=== PATIENT | male | born 1960 | race Caucasian/White ===

== ENCOUNTER → 2024-08-30 11:02 | Outpatient (CLI) | payer OTHER, SELFPAY ==
[2024-08-30 12:11] LABS: Add Manual Diff / Slide Review NO; Basophils Absolute Auto 100 /uL (0-100); Basophils Percent Auto 0.8 % (0-2); Eosinophils Absolute Auto 100 /uL (0-450); Eosinophils Percent Auto 1.7 % (2-4); Hematocrit 47.5 % (41-53); Hemoglobin 15.8 g/dL (13.5-17.5); Lymphocytes Absolute Auto 2200 /uL (1100-4500); Lymphocytes Percent Auto 27.7 % (25-40); Mean Corpuscular HGB Conc 33.2 % (30-36); Mean Corpuscular Hemoglobin 29.6 PG (26-34); Mean Corpuscular Volume 89.2 fL (80-100); Monocytes Absolute Auto 900 /uL (0-900); Monocytes Percent Auto 11.6 % (3-14); Neutrophils Absolute Auto 4600 /uL (1500-7000); Neutrophils Percent Auto 58.2 % (50-75); Platelet Count 229 X10^3/uL (150-400); Red Blood Cell Count 5.32 X10^6/uL (4.5-5.9); Red Cell Distribution Width 14.2 % (11.6-14.8); White Blood Cell Count 7.8 X10^3/uL (4.5-11.0)
--- NOTE | 2024-08-30 12:32 | EKG_ITS ---
Merged With [facility] [address] [address] Test Date: 2024-08-30 Pat Name: Refugio Villa Department: Merged With [facility] Room: Gender: Male Kitchen Food Server: KAITLIN : 1960 Requested By: Order Number: [id number] Reading MD: Mike Jackson MD Measurements Intervals [place] Rate: 64 P: 36 MS: 202 QRS: -32 QRSD: 100 T: -1 QT: 394 QTc: 406 Interpretive Statements Normal sinus rhythm Left axis deviation Minimal voltage criteria for LVH, may be normal variant ( R in aVL ) Electronically Signed On 08-31-2024 7:34:19 PDT by Mike Jackson MD
[2024-08-30 12:35] LABS: Albumin 4.3 g/dL (3.5-5.0); BUN Creatinine Ratio 15.7 (6-22); Blood Urea Nitrogen 13 mg/dL (9-20); Calcium 9.9 mg/dL (8.4-10.2); Carbon Dioxide 22 mmol/L (22-32); Chloride 105 mmol/L (98-107); Estimated Glomerular Filt Rate > 60 mL/min (>60); Glucose 72 mg/dL (70-99); HEMOLYSIS < 15 (0-50); Potassium 4.5 mmol/L (3.4-5.1); Sodium 136 mmol/L (137-145)
[2024-08-30 12:43] LABS: Prealbumin 27.8 mg/dL (17.6-36.0)
[2024-08-30 21:43] LABS: Vitamin D 25 Hydroxy (D3) 38.7 ng/mL (30.0-100.0)
== END ==
PROVIDERS: PCP Student in an Organized Health Care Education/Training Program; Referring Provider Orthopaedic Surgery Adult Reconstructive Orthopaedic Surgery; Visit Provider Orthopaedic Surgery Adult Reconstructive Orthopaedic Surgery
DX: Z01.818 Encounter for other preprocedural examination (principal); M16.11 Unilateral primary osteoarthritis, right hip
CPT/HCPCS: 36415; 80048; 82040; 82306; 84134; 85025; 93005

== ENCOUNTER → 2024-09-14 08:09 | Outpatient (CLI) | payer OTHER, SELFPAY | PROVIDERS: PCP Student in an Organized Health Care Education/Training Program; Referring Provider Orthopaedic Surgery Adult Reconstructive Orthopaedic Surgery; Visit Provider Orthopaedic Surgery Adult Reconstructive Orthopaedic Surgery | DX: Z87.891 Personal history of nicotine dependence (principal); Z96.642 Presence of left artificial hip joint | CPT/HCPCS: 80321 ==

== ENCOUNTER → 2025-01-29 16:51 | Outpatient (CLI) | payer OTHER, SELFPAY ==
[2025-01-29 17:35] LABS: Add Manual Diff / Slide Review NO; Hematocrit 50.6 % (41-53); Hemoglobin 17.3 g/dL (13.5-17.5); Lymphocytes Absolute Auto 2100 /uL (1100-4500); Mean Corpuscular HGB Conc 34.2 % (30-36); Mean Corpuscular Hemoglobin 28.9 PG (26-34); Mean Corpuscular Volume 84.4 fL (80-100); Platelet Count 205 X10^3/uL (150-400)
[2025-01-29 18:13] LABS: Albumin 4.4 g/dL (3.5-5.0); Blood Urea Nitrogen 15 mg/dL (9-20); Calcium 9.7 mg/dL (8.4-10.2); Carbon Dioxide 24 mmol/L (22-32); Chloride 103 mmol/L (98-107); Estimated Glomerular Filt Rate > 60 mL/min (>60); Glucose 92 mg/dL (70-99); HEMOLYSIS 21 (0-50); Potassium 4.2 mmol/L (3.4-5.1); Sodium 137 mmol/L (137-145)
[2025-01-29 18:15] LABS: Hemoglobin A1C% w Est Avg Glu 5.4 % (4.0-6.0)
[2025-01-29 18:22] LABS: Prealbumin 33.1 mg/dL (17.6-36.0)
[2025-01-29 18:31] LABS: Vitamin D 25 Hydroxy (D3) 34.3 ng/mL (30.0-100.0)
== END ==
PROVIDERS: PCP Student in an Organized Health Care Education/Training Program; Referring Provider Orthopaedic Surgery Adult Reconstructive Orthopaedic Surgery; Visit Provider Orthopaedic Surgery Adult Reconstructive Orthopaedic Surgery
DX: Z01.818 Encounter for other preprocedural examination (principal); M16.11 Unilateral primary osteoarthritis, right hip
CPT/HCPCS: 36415; 80048; 82040; 82306; 83036; 84134; 85025

== ENCOUNTER 2025-02-26 06:11 | Day surgery (SDC) | payer OTHER, SELFPAY ==
[2025-02-12 08:37] VITALS: BMI 24.5
--- NOTE | 2025-02-26 | DI.RAD.S_ITS ---
PROCEDURE: XR HIP W PEL IF DONE RT 2V INDICATIONS: RT TOTAL HIP TECHNIQUE: 2 view(s) of the hip acquired. COMPARISON: [facility], PATRICIA, ORTHO-XR HIP RT 2V, 08/25/2024, 9:03. [facility], PATRICIA, XR HIP W PEL RT 2V, 02/26/2025, 8:57. FINDINGS: Bones: Patient is status post right hip arthroplasty, with hardware components in expected positions. The hip joint appears congruent. The visualized bony structures appear intact. Left hip arthroplasty redemonstrated partially visualized. Per surgical changes of the lumbosacral spine partially imaged. Soft tissues: Overlying postoperative changes are noted. No suspicious soft tissue densities. IMPRESSION: Expected immediate postoperative appearance and alignment of right hip arthroplasty. Dictated by: Cam DONOVAN Interpreted: Princess Mujica MD on 02/26/2025 at 11:22 Approved by: Princess Mujica M.D. on 02/26/2025 at 21:27
--- NOTE | 2025-02-26 06:59 | DI.RAD.S_ITS ---
PROCEDURE: XR HIP W PEL IF DONE RT 2V INDICATIONS: Implant placement TECHNIQUE: Intraoperative views during hip replacement. COMPARISON: None. FINDINGS/IMPRESSION: Intraoperative views during hip replacement. Please refer to operative note for further details. Dictated by: Wally Nolen M.D. on 02/26/2025 at 10:27 Approved by: Wally Nolen M.D. on 02/26/2025 at 10:27
[2025-02-26 07:05] VITALS: BP 139/75; PULSE 62; RESP 16; TEMP 36.7; O2SAT 99
[2025-02-26] MEDS: MELOXICAM 7.5 MG TABLET 15 MG PO (07:12)
[2025-02-26] MEDS: ACETAMINOPHEN 325 MG TABLET 975 MG PO (07:12)
--- NOTE | 2025-02-26 07:25 | PM.PREOP ---
Pre-operative Note Interval Note History & Physical reviewed/Exam performed by Physician: Yes Changes to H&P: No
[2025-02-26] MEDS: LACTATED RINGERS 1,000 ML 42 ML IV ×2 (07:28→09:18)
[2025-02-26] MEDS: TRANEXAMIC ACID 1,000 MG in SODIUM CHLORIDE 0.9% 100 ML 200 MG IV ×2 (08:05→10:16)
--- NOTE | 2025-02-26 08:32 | SUR.OPER ---
Supine on padded [place] table with bilateral legs secured in padded positioning boots and suspended in positioning spars, operative leg in traction per surgeon. Head on one pillow. bilateral Arm secured on padded armboard <90 degrees abduction. . Padded perineal post in place per surgeon.
[2025-02-26] MEDS: KETOROLAC 30 MG/ML VIAL 15 MG INJ (08:50)
--- NOTE | 2025-02-26 10:10 | P.OP_ITS ---
Operative Date/Time/Diagnoses Date of procedure: 02/26/25 Time of procedure: 07:45 Pre-op diagnosis: Right hip arthritis Post-op diagnosis: same Procedure & Clinicians Procedure: Right total hip arthroplasty Same procedure(s) as scheduled: Yes Surgeon: Harley Argueta Assisted?: Yes Abrasive Coating Machine Operator: Sabrina De Luna Anesthesia Type: Spinal, Sedation and Local Operative Notes Findings: Severe arthritis Closure Type: primary Specimen(s): none sent Applied: implant(s) Estimated Blood Loss (mL): 400 Procedure in detail: 1. Right Uncemented Direct Anterior Marina Total Hip Arthroplasty (97669) 2. Computer-Assisted Musculoskeletal Surgical Navigational Orthopedic Procedure Using Fluoroscopic Image Guidance (0054T) Implants: * Gonsalves and nephew mono block polar cup PPS size 59 cup? * Z1 femoral stem size 8 high offset? * 28 mm +0 ceramic Marina femoral head? * Twenty-eight inner/59 outer Gonsalves and Nephew polar cup dual mobility liner Procedure Summary: This 64-year-old male patient has a history of a spinal fusion so a mono block dual mobility articulation was utilized during today's procedure. He has a muscular body habitus and his TFL interfered with the angle necessary for broaching the femur so it was released. I attempted to utilize a +3.5 head but was unable to reduce this so a +0 head was utilized which demonstrated appropriate offset and leg lengths on the ortho grid overlay so those sizes were utilized. Procedure in Detail: This patient was seen preoperatively and evaluated for hip pain which was refractory to numerous nonoperative treatment modalities. Their hip pain correlated with radiographic changes demonstrating significant degeneration in the hip joint. The risks and benefits of continued nonoperative management versus operative management were discussed at length and all of the patient?s questions were answered. Additional educational materials providing further details beyond our discussion in clinic were provided via a publicly available patient education video which included the incidence of medical complications associated with total hip arthroplasty, reasons for revision following total hip arthroplasty, and patient satisfaction rates following total hip arthroplasty. With this understanding of the risks inherent to the procedure, the patient elected to move forward with operative management. Following preoperative optimization, the patient was scheduled for surgery. The patient was met in the preoperative holding area the day of the procedure and all questions were answered. The patient?s nares were swabbed in order to decolonize them from MRSA. Informed consent was signed and the right limb was marked with indelible ink.? The patient was brought back to the operating room where anesthesia was induced. The patient was transferred to the [place] table and all bony prominences were padded. The operative site was prepped and draped in the usual sterile fashion. Prior to incision, tranexamic acid and cefazolin were administered. Operative templating images were displayed demonstrating the anticipated implant sizes and correct operative extremity. A timeout procedure was performed verifying the patient?s identity, medical comorbidities, allergies, relevant medications, anesthesia type and the surgical plan. All present were in agreement. The assistance of a physician undertaker assistant was required for positioning, room setup, soft tissue retraction and wound closure. Without this assistance, the procedure would have been significantly more challenging and time consuming.?? A direct anterior approach to the hip was utilized. This was performed with a longitudinal incision through a Heuter interval. The incision was planned 2 cm distal and 2 cm lateral to the ASIS extending towards the lateral patella, in line with the muscle body of the TFL. Following incision, the subcutaneous tissue was dissected while taking care to avoid injury to the lateral femoral cutaneous nerve. The fascia overlying the TFL was identified by dissecting off t he overlying fat and identifying perforating vessels to the TFL. The TFL fascia was incised and dissected away from the medial border of the TFL. A retractor was placed over the superior femoral neck between the abductors and the hip capsule and used to reflect the TFL laterally. A [place] self-retainer was then placed in the distal aspect of the wound between the TFL and the rectus femoris. This was tensioned to open up the direct anterior interval and the lateral circumflex vessels were identified and coagulated using electrocautery. The floor of the TFL fascia was incised, exposing the pericapsular fat overlying the hip capsule. A second cobra retractor was placed on the inferior femoral neck. A retractor was placed on the anterior wall of the acetabulum and used to tension the reflected head of rectus femoris, which was then released in order to limit soft tissue tension. A capsulotomy was made in the midline of the anterior hip capsule in line with the femoral neck ending at the vastus tubercle. The anterior retractor was removed as soon as the capsulotomy was completed in order to limit the amount of time that a soft tissue retractor remained on the anterior wall and limit tension on the femoral nerve. Tag stitches were placed in the superior and inferior leaflets of the hip capsule. An Travon soft tissue retractor was introduced over the tag stitches and tensioned in the interval between the rectus femoris and the TFL in order to retract and protect those muscles. The cobra retractors were replaced intracapsularly, with one over the superior neck in the pocket created by the base of the greater trochanter and the other on the femoral head. The capsulotomy was extended laterally to the base of the greater trochanter and medially to the lesser trochanter. This requ ired externally rotating the hip. Once the lesser trochanter had been identified, a neck cut was planned according to measurements from preoperative templating. A ruler was cut at the length measured between the superior aspect of the lesser trochanter and the collar of the prosthesis. This line was extended towards the inferior aspect of the lateral cobra retractor to plan a cut which would leave minimal residual femoral neck laterally. The neck was cut at 60 degrees of external rotation along that line. A second cut was performed to remove a large napkin ring and facilitate head extraction. The napkin ring cut and femoral head were removed.?? A broad anterior wall retractor was placed between the labrum and the anterior capsule so that the anterior capsule would prevent capturing and pinching the femoral nerve anteriorly. An additional retractor was placed on the posterior wall. External rotation and traction were applied through the [place] table so that the cut surface of the femoral neck would not restrict access to the acetabulum. The labrum was excised sharply and the pulvinar was excised with electrocautery to limit bleeding from branches of the obturator artery. Acetabular reamers were selected based on preoperative templating and measurements of the excised femoral head. These were introduced into the acetabulum. Fluoroscopy was utilized to replicate a standing AP pelvis radiograph by centering over the pelvis, rotating until there was appropriate symmetry between the obturator foramen, and introducing caudal tilt to match the position of the pubic symphysis relative to the sacrococcygeal junction according to the patient?s anatomy. Once satisfied with the reaming depth corresponding to the preoperative template and the pinch fit between the columns, an appropriate sized acetabular cup was selected which would provide 1 mm of press-fit. This cup was introduced and manipulated until appropriate abduction and anteversion angles were obtained with careful attention to appropriate abduction and anteversion angles as evaluated by the position of the cup relative to the anterior and posterior duran of the acetabulum and the AP fluoroscopy which recreated the patient?s standing radiograph. The cup was impacted into place. Peripheral osteophytes were removed. The acetabular liner was then placed with care to ensure locking of the locking mechanism. Attention was then turned to the femur. All retractors were removed, traction was released, a retractor was placed in the interval between the hip capsule and the gluteus minimus. The lateral capsule was released using electrocautery. Traction was released and a [place] hook was placed posteriorly around the proximal femur at the level of the vastus ridge. The table height was lowered in order to restrict the tension on the anterior structures during hip hyperextension to limit the risk of femoral nerve palsy. With traction off and the hip at 90 degrees of external rotation, the hip was hyperextended and adducted while manually elevating the femur away from the acetabulum with the [place] hook to avoid hooking the greater trochanter on the pelvis. An asymmetric retractor was placed over the calcar and a broad double-pronged retractor was placed over the greater trochanter. The tag stitch capturing the lateral leaflet of the capsule was moved to the medial side, leaving the conjoined and piriformis tendons isolated in the face of the greater trochanter. The hip was externally rotated and elevated. A release of the conjoined tendon was not necessary in order to obtain adequate exposure for broaching but a proximal TFL release was necessary given the angle of his TFL. The canal was opened with an opening broach and a rasp was used to remove cancellous bone. A rongeur was used to remove the r esidual lateral bone at the base of the greater trochanter to avoid placing the stem in varus. The femur was then broached to the appropriate sized stem yielding good rotational fit and fill of the canal as well as appropriate version of the stem trial. Neck and head trials were placed, all retractors were removed and the hip was returned to neutral abduction and extension. I then reduced the hip and manually trialed it before changing surgical gloves. Initial trialing was performed with a size 8 broach, a high offset neck and a +3.5 head. I could not reduce it so I downsized to a +0 head. With difficulty I was then able to reduce it given the very large size of the head and him having been very short preoperatively. I initially manually externally rotated the hip and found that I could not dislocate it. I then locked the hip in 45 degrees of external rotation and dropped it to the floor with traction off which demonstrated no instability. An ortho grid overlay image demonstrated appropriate leg length and offset. AP and lateral hip fluoroscopic images were obtained to evaluate the broach size which demonstrated good canal fill. The hip was dislocated and I returned to the broaching position. Based on my evaluation during initial trialing I planned to place these definitive implants. The definitive stem was placed and the trunnion was cleaned and dried. I placed a ceramic head onto the trunnion and impacted it into place on the Negron taper.?? All retractors were removed and the hip was reduced. A dilute mixture of betadine and peroxide was used to bathe the soft tissues during final fluoroscopic assessment. Appropriate component positioning was confirmed on an AP pelvis radiograph with the operative and nonoperative legs in 40 degrees of external rotation, evaluating leg length and offset. Appropriate stem fill was evaluated on AP and lateral hip radiographs. No previously unrecognized fractures were identified on these radiographs. There was no hip instability with external rotation as well as a 45 degree drop test. The hip was copiously irrigated with pulse lavage. The capsule was closed with absorbable interrupted suture. The TFL fascia was closed with barbed suture while carefully protecting the lateral femoral cutaneous nerve from entrapment. A mixture of Ropivacaine, Epinephrine and Toradol was infiltrated throughout the soft tissues. The skin was closed with 2-0 and 3-0 sutures. Surgical glue was applied and a soft dressing was placed.??The sponge, instrument and needle counts were reported as being correct at the end of the case.??No obvious complications occurred. The patient was transferred from the [facility] back to a stretcher. The patient emerged from anesthesia without difficulty and was taken to the PACU in a stable condition.? Plan for aftercare: * No hip precautions * Weightbearing as tolerated * Aspirin 81 twice per day for DVT prophylaxis * Cefadroxil for periprosthetic joint infection prophylaxis * Sandy wound VAC dressing given history of wound breakdown after prior left total hip arthroplasty * Anticipate discharge home today * Multimodal pain regimen with no IV opioids ordered * Follow up at [facility] in 2 weeks Complications: none Post-operative Condition: stable Disposition: same day surgery
[2025-02-26 10:55] VITALS: BP 100/66; PULSE 72; RESP 16; TEMP 36.3; O2SAT 96
[2025-02-26 11:01] VITALS: BP 115/66; PULSE 67; RESP 12; TEMP 36.3; O2SAT 95
[2025-02-26 11:08] VITALS: BP 111/73; PULSE 69; RESP 16; TEMP 36.4; O2SAT 95
[2025-02-26 11:15] VITALS: BP 117/79; PULSE 68; RESP 15; TEMP 36.2; O2SAT 98
--- NOTE | 2025-02-26 15:00 | PT.IIE ---
Surgery Performed Operation Date: 02/26/25 07:45 Actual Procedures p Total Hip Arthroplasty/Anterior Approach(Right) - Harley Argueta MD Surgical History (This Medical Record has been edited. Action required.) History of prostate surgery History of surgery on arm Hx of appendectomy Hx of hernia repair Hx of right knee surgery Hx of shoulder surgery Hx of spinal fusion S/p revision of left total hip Status post total hip replacement, left Medical History (This Medical Record has been edited. Action required.) Depression History of MRSA infection HIV (human immunodeficiency virus infection) (1984) HLD (hyperlipidemia) HTN (hypertension) Primary osteoarthritis of right hip Shingles (08/2024) Viral cardiomyopathy Physical Therapy Inpatient Evaluation/Re-Eval M1 PT IP Prior Functional Status Start: 02/26/25 15:21 Freq: Status: Discharge Protocol: Document 02/26/25 15:21 NW (Rec: 02/26/25 15:32 NW [id number]) Medical Review Prior Functional Status Mobility and Gait Pt is does not use an AD and ambulates at will. Is fairly fit and participates in hiking and other outdoor exercise on a regular basis. Prior Functional Lives in a 55+ community. Level (Other details ) Social History Household Members significant other Living Arrangements House Number of Floors ( One Floor Floors) Number of Stairs To 0 Enter/Railing? Home Environment High Toilet,Walk in Shower Home Equipment Front Wheel Walker,Straight Cane,Grab Bars In Shower Additional Social Pt has lifted truck. History Comment M2 PT-IP Current Condition Start: 02/26/25 15:21 Freq: Status: Discharge Protocol: Document 02/26/25 15:21 NW (Rec: 02/26/25 15:32 NW [id number]) Physical Therapy Current Condition Current Condition Evaluation Date 02/26/25 Treatment Diagnosis R QUINTEN anterior Onset Date 02/26/25 M3 PT-IP Subjective Start: 02/26/25 15:21 Freq: Status: Discharge Protocol: Document 02/26/25 15:21 NW (Rec: 02/26/25 15:32 NW [id number]) Subjective Physical Therapy Visit Type Type Initial Evaluation Visit Start Time 14:30 Visit Stop Time 15:00 Notes partner present for session. 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 Has had previous L QUINTEN anterior and posterior revision approach. Patient Goals Go home. M4 PT-IP Mobility and Gait Start: 02/26/25 15:21 Freq: Status: Discharge Protocol: Document 02/26/25 15:21 NW (Rec: 02/26/25 15:32 NW [id number]) PT-Bed Mobility Assessment Supine to Sit Supine to Sit Independent Sit to Supine Sit to Supine Independent Scooting Scooting to Edge of Independent Bed PT-Transfer Assessment Sit to and From Stand Sit to and from Contact Guard Assistance Stand Equipment Transfer Assistive Gait Belt,Front Wheeled Walker Device Transfers Transfer Destination Bed Transfer Technique Stand Step Pivot Transfer Ability Level of Assist Contact Guard Assistance Comments Mobility Comments Good power production and balance upon stance w/ and w/ o UE support with FWW. Gait Assessment Gait Gait Assistance Contact Guard Assist Required: Distance (Feet) 60 Assistive Devices Assistive Device Gait Belt,Front Wheeled Walker Gait Deviations General Gait Pattern Antalgic,Step-to Gait Comments Gait Comments Occasional cues to decrease depth in FWW. Good UE use and step to gait pattern. Stair Climbing Assessment Comments Stair Climbing not applicable Comments PT-Balance Assessment Sitting Balance and Reactions Static Sitting Normal Balance Ability Dynamic Sitting Normal Balance Ability Standing Balance and Reactions Static Standing Good Balance Ability Dynamic Standing Fair Balance Ability Device Used FWW Comments Other Balance Tests/ Able to maintain upright without UE support Deviations/Treatment intermittently. : Functional Assessments Other Functional Tests not applicable. Performed M5 PT-IP Objective Assessments Start: 02/26/25 15:21 Freq: Status: Discharge Protocol: Document 02/26/25 15:21 NW (Rec: 02/26/25 15:32 NW [id number]) Orientation Orientation/Cognition Level of Alertness Alert Orientation Name,Age,Birthday,Month,Date,Year,Day of Week,Place, Situation Safety Awareness Understands Safety Issues Comments Able to follow precautions given with education. Gross Range of Motion Upper Extremity ROM Assessment Within Functional Limits Lower Extremity ROM Assessment Within Functional Limits Strength Upper Extremity Strength Assessment Within Functional Limits Lower Extremity Strength Assessment Right Impaired Hip DNT hip flexion Knee WFL Ankle WFL Sensation Assessment Sensation Gross Sensation WNL Sensation Paresthesia Description Comments Sensation Comments Pt has groin parasthesia secondary to spinal block. Muscle Tone Muscle Tone WNL Yes M6 PT-IP Treatment Start: 02/26/25 15:21 Freq: Status: Discharge Protocol: Document 02/26/25 15:21 NW (Rec: 02/26/25 15:32 NW [id number]) Physical Therapy Treatment Education Education Provided Precautions,Weight Bearing Status,Post-Op Packet,Safety Other Treatments Other Treatment Education provided on car transfers with lifted vehicle Performed and strategies to complete with spouse present. Education on post op exercises and post op packet with regards to functional mobility. M7 PT-IP Assessment and Plan Start: 02/26/25 15:21 Freq: Status: Discharge Protocol: Document 02/26/25 15:21 NW (Rec: 02/26/25 15:32 NW [id number]) PT Summary Assessment and Plan Potential Rehabilitation Good Potential Status of Condition Stable at Evaluation Summary Impairments Transfers,Gait Progress Towards Progressing Toward Goals Goals Assessment Summary Refugio is a 64 yr old male status post R anterior QUINTEN on 02/26/25. Pt at baseline participates in regular exercise, ambulates without an AD, and is actively engaged within the community. Pt is able to follow and maintain precautions with all functional mobility. Pt is independent with bed mobility and CGA with transfers and gait with FWW for 60 ft in single bout. Education given on strategies to get in and out of lifted vehicle . Recommending pt to continue to OP PT upon discharge which is set up prior. Frequency of Treatment Frequency Of Discharge Treatment Treatment Plan Other Pt is same day outpatient surgery. Recommendations and Next Treatment Focus Precautions Anterior Hip No Hip Extension,No Hip External Rotation Precautions Other Precautions WBAT Weight Bearing Status Weight Bearing Weight Bear as Tolerated Status Recommendations To Nursing Amount of Assist Standby Assistance,1 Person Assist Needed Discharge Recommendations PT Discharge Home with Assistance,Outpatient PT Recommendations Other Discharge Continue use of FWW until progressed off with PT. Recommendations Transportation Needs Private Vehicle at Discharge - PT assist 1
[2025-02-26 15:25] VITALS: BP 127/81; PULSE 69; RESP 14; O2SAT 99
== END 2025-02-26 15:32 | disposition home or self-care (01) ==
PROVIDERS: PCP Student in an Organized Health Care Education/Training Program; Referring Provider Student in an Organized Health Care Education/Training Program; Visit Provider Orthopaedic Surgery Adult Reconstructive Orthopaedic Surgery
PROC: (CPT 27130; principal; 2025-02-26 07:45)
DX: M16.11 Unilateral primary osteoarthritis, right hip (principal); M25.751 Osteophyte, right hip; Z87.891 Personal history of nicotine dependence
CPT/HCPCS: 27130; 0054T; 73502; 76000; 97161; 97530; C1776; J0689; J1100; J1885; J2405; J2704; J7050; J7120